=== PATIENT | male | born 1930 | race Caucasian/White ===

== ENCOUNTER 2016-10-17 10:34 | Inpatient (IN) | payer MEDICARE ==
[~2016-10-17] VITALS: Ht 177.8 cm; Wt 82.4 kg
[2016-10-17] MEDS ORDERED: ASPI-496 PO (10:45)
[2016-10-17 11:29] LABS: BLOOD UREA NITROGEN 24 mg/dL (7-18)
[2016-10-17] MEDS ORDERED: hydrALAzine 20 MG/ML, 1ML IV PRN (15:00)
[2016-10-17 15:19] VITALS: BP 131/67
[2016-10-17] MEDS: SODIUM CHLORIDE 0.9% 1,000 ML IV SCH (15:32)
[2016-10-17] MEDS: ATORVASTATIN 20 MG TABLET PO SCH (19:58)
[2016-10-17 20:38] VITALS: BP 124/73
[2016-10-18] MEDS: SODIUM CHLORIDE 0.9% 1,000 ML IV SCH ×2 (00:22→22:15)
[2016-10-18 02:37] VITALS: BP 109/63
[2016-10-18] MEDS: ASPIRIN 325 MG TABLET PO SCH (06:00)
[2016-10-18] MEDS: ENOXAPARIN 40 MG/0.4 ML SQ SCH (13:30)
[2016-10-18] MEDS: ATORVASTATIN 20 MG TABLET PO SCH (21:00)
[2016-10-19] MEDS: ASPIRIN 325 MG TABLET PO SCH (06:10)
[2016-10-19 06:50] VITALS: BP 146/70
[2016-10-19 07:29] VITALS: BP 127/63
[2016-10-19 13:30] VITALS: BP 108/63
[2016-10-19] MEDS: SODIUM CHLORIDE 0.9% 1,000 ML IV SCH (16:01)
[2016-10-19] MEDS: ENOXAPARIN 40 MG/0.4 ML SQ SCH (16:01)
[2016-10-19 20:25] VITALS: BP 129/59
[2016-10-19] MEDS: ATORVASTATIN 20 MG TABLET PO SCH (20:54)
[2016-10-19 22:05] VITALS: BP 142/74
[2016-10-20] MEDS: SODIUM CHLORIDE 0.9% 1,000 ML IV SCH ×3 (01:43→21:02)
[2016-10-20 01:55] VITALS: BP 145/73
[2016-10-20] MEDS: ASPIRIN 325 MG TABLET PO SCH (06:19)
[2016-10-20 12:16] VITALS: BP 166/78
[2016-10-20] MEDS: ENOXAPARIN 40 MG/0.4 ML SQ SCH (12:19)
[2016-10-20] MEDS ORDERED: ASPI325T4 PO (16:03)
[2016-10-20] MEDS ORDERED: ATOR20TA9 PO (16:03)
[2016-10-20 18:35] VITALS: BP_SYST 167; BP_SYST 185; BP_DIAS 77; BP_DIAS 82
[2016-10-20] MEDS: ATORVASTATIN 20 MG TABLET PO SCH (21:01)
[2016-10-21 00:17] VITALS: BP 152/78
[2016-10-21 03:47] VITALS: BP 159/77
[2016-10-21] MEDS: ASPIRIN 325 MG TABLET PO SCH (05:43)
[2016-10-21] MEDS: SODIUM CHLORIDE 0.9% 1,000 ML IV SCH (05:43)
[2016-10-21 08:48] VITALS: BP 168/92
[2016-10-21] MEDS ORDERED: TAMSULOSIN 0.4 MG CAP.ER.24H PO SCH (10:00)
[2016-10-21] MEDS: ENOXAPARIN 40 MG/0.4 ML SQ SCH (11:24)
[2016-10-21] MEDS ORDERED: TAMS-11 PO (12:06)
[2016-10-21 12:56] VITALS: BP 134/81
== END 2016-10-21 14:10 | DRG 65 ==
LOC: ED 11:26 → EDIP 13:31 → 4WST 15:08
PROVIDERS: ADMIT Hospitalist; ATTEND Hospitalist
DX: I63.9 Cerebral infarction, unspecified (principal); G81.91 Hemiplegia, unspecified affecting right dominant side; I50.30 Unspecified diastolic (congestive) heart failure; I35.0 Nonrheumatic aortic (valve) stenosis; N40.1 Benign prostatic hyperplasia with lower urinary tract symptoms; R33.8 Other retention of urine; Z66 Do not resuscitate; R47.81 Slurred speech; R47.1 Dysarthria and anarthria; R26.2 Difficulty in walking, not elsewhere classified; Z60.2 Problems related to living alone; Z88.0 Allergy status to penicillin; Z87.891 Personal history of nicotine dependence; Z79.82 Long term (current) use of aspirin; Z91.81 History of falling
CPT/HCPCS: 36415; 70450; 70496; 70498; 80048; 80061; 85025; 85610; 85730; 93005; 93306; 99285; J1650; 92523-GN; J7030

== ENCOUNTER → 2017-08-12 | Outpatient (CLI) | payer MEDICARE ==
[~2017-08-12] MED LIST: ASPI-496 PO; ASPI325T17 PO; ATOR20TA9 PO; ONDA4VIA4 PO; POLY17PO5 PO; TAMS-11 PO; TRAM50TA2 PO
== END | disposition home or self-care (01) ==
LOC: WOUND 09:58
PROVIDERS: ATTEND Family Medicine
DX: S51.811A Laceration without foreign body of right forearm, initial encounter (principal); E78.2 Mixed hyperlipidemia; Z86.73 Personal history of transient ischemic attack (TIA), and cerebral infarction without residual deficits; W18.39XA Other fall on same level, initial encounter; Y93.89 Activity, other specified; Y92.89 Other specified places as the place of occurrence of the external cause; Y99.8 Other external cause status
CPT/HCPCS: 97597; 97598; G0463; WOU0463

== ENCOUNTER → 2017-08-26 | Outpatient (CLI) | payer MEDICARE | END | disposition home or self-care (01) | LOC: WOUND 10:39 | PROVIDERS: ATTEND Family Medicine | DX: S51.811D Laceration without foreign body of right forearm, subsequent encounter (principal); E78.2 Mixed hyperlipidemia; Z86.73 Personal history of transient ischemic attack (TIA), and cerebral infarction without residual deficits; X58.XXXD Exposure to other specified factors, subsequent encounter | CPT/HCPCS: 97597 ==

== ENCOUNTER → 2017-09-16 | Outpatient (CLI) | payer MEDICARE | END | disposition home or self-care (01) | LOC: WOUND 10:30 | PROVIDERS: ATTEND Family Medicine | DX: S51.811D Laceration without foreign body of right forearm, subsequent encounter (principal); I63.39 Cerebral infarction due to thrombosis of other cerebral artery; E78.2 Mixed hyperlipidemia; Z86.73 Personal history of transient ischemic attack (TIA), and cerebral infarction without residual deficits; X58.XXXD Exposure to other specified factors, subsequent encounter | CPT/HCPCS: 97597 ==

== ENCOUNTER 2017-11-13 22:09 | Emergency (ER) | payer MEDICARE ==
[~2017-11-13] VITALS: Ht 175.3 cm; Wt 70.0 kg
[~2017-11-13 22:09] MED LIST changes: +BUPR300T49 PO; +BUPR75TA6 PO; +OXYB5TAB7 PO
[2017-11-13 22:40] LABS: BASOPHILS # (AUTO) 0.03 x10^3/uL (0-0.1); BASOPHILS % (AUTO) 0 % (0-1); EOSINOPHILS # (AUTO) 0.06 x10^3/uL (0-0.4); EOSINOPHILS % (AUTO) 1 % (1-7); LYMPHOCYTES # (AUTO) 0.93 x10^3/uL (1-3.4); LYMPHOCYTES % (AUTO) 9 % (22-44); MD NO; MEAN CORPUSCULAR HEMOGLOBIN 28.8 pg (27.5-34.5); MEAN CORPUSCULAR HGB CONC 33.4 g/dL (33.2-36.2); MEAN CORPUSCULAR VOLUME 86.1 fL (81-97); MEAN PLATELET VOLUME 8.1 fL (7.4-10.4); MONOCYTES # (AUTO) 0.57 x10^3/uL (0.2-0.8); MONOCYTES % (AUTO) 5 % (2-9); NEUTROPHILS # (AUTO) 9.43 x10^3/uL (1.8-6.8); NEUTROPHILS % (AUTO) 86 % (42-75); PLATELET COUNT 204 x10^3/uL (130-400); RED BLOOD COUNT 4.81 x10^6/uL (4.38-5.82); RED CELL DISTRIBUTION WIDTH 18.1 % (9.4-14.8)
[2017-11-13 22:48] LABS: MICROSCOPIC NOT IND
[2017-11-13 22:49] LABS: ALBUMIN 3.3 g/dL (3.4-5.0); ANION GAP 7 mmol/L (5-15); CALCIUM 8.5 mg/dL (8.5-10.1); CHLORIDE 106 mmol/L (98-107); CREATININE 0.87 mg/dL (0.7-1.3)
[2017-11-13 22:51] LABS: CULTURE INDICATED? NO
[2017-11-13 23:21] VITALS: BP 141/74
== END 2017-11-14 | disposition home or self-care (01) ==
LOC: ED 23:45
DX: R10.9 Unspecified abdominal pain (principal); N40.1 Benign prostatic hyperplasia with lower urinary tract symptoms; R33.8 Other retention of urine; Z90.49 Acquired absence of other specified parts of digestive tract; Z86.73 Personal history of transient ischemic attack (TIA), and cerebral infarction without residual deficits
CPT/HCPCS: 36415; 51702; 80048; 81003; 82040; 85025; 99284

== ENCOUNTER 2017-11-18 13:32 | Inpatient (IN) | payer MEDICARE ==
[~2017-11-18] VITALS: Ht 175.3 cm; Wt 64.8 kg
[2017-11-18] MEDS ORDERED: PHENAZOPYRIDINE 200 MG TABLET ONE (14:18)
[2017-11-18] MEDS ORDERED: PHENAZOPYRIDINE 200 MG TABLET PO ONE (14:30)
[2017-11-18 14:53] LABS: MICROSCOPIC INDICATED
[2017-11-18 14:54] LABS: CULTURE INDICATED? YES
[2017-11-18 15:04] LABS: BASOPHILS # (AUTO) 0.01 x10^3/uL (0-0.1); BASOPHILS % (AUTO) 0 % (0-1); EOSINOPHILS # (AUTO) 0.16 x10^3/uL (0-0.4); EOSINOPHILS % (AUTO) 2 % (1-7); LYMPHOCYTES # (AUTO) 1.13 x10^3/uL (1-3.4); LYMPHOCYTES % (AUTO) 15 % (22-44); MD NO; MEAN CORPUSCULAR HEMOGLOBIN 29.1 pg (27.5-34.5); MEAN CORPUSCULAR HGB CONC 33.4 g/dL (33.2-36.2); MEAN CORPUSCULAR VOLUME 86.9 fL (81-97); MEAN PLATELET VOLUME 8.4 fL (7.4-10.4); MONOCYTES # (AUTO) 0.53 x10^3/uL (0.2-0.8); MONOCYTES % (AUTO) 7 % (2-9); NEUTROPHILS # (AUTO) 5.62 x10^3/uL (1.8-6.8); NEUTROPHILS % (AUTO) 76 % (42-75); PLATELET COUNT 211 x10^3/uL (130-400); RED BLOOD COUNT 5.35 x10^6/uL (4.38-5.82); RED CELL DISTRIBUTION WIDTH 18.2 % (9.4-14.8)
[2017-11-18 15:11] LABS: ALBUMIN 3.4 g/dL (3.4-5.0); ANION GAP 8 mmol/L (5-15); CALCIUM 8.5 mg/dL (8.5-10.1); CHLORIDE 105 mmol/L (98-107); CREATININE 0.87 mg/dL (0.7-1.3)
[2017-11-18] MEDS ORDERED: CEFTRIAXONE PMX 1GM/50ML 50 ML ONE (16:14)
[2017-11-18] MEDS ORDERED: ONDANSETRON 2MG/ML, 2ML IVPush PRN (16:30)
[2017-11-18] MEDS ORDERED: SODIUM CHLORIDE 0.9% 1,000ML IVBOLUS ONE (16:30)
[2017-11-18] MEDS ORDERED: ONDANSETRON ODT 4 MG PO PRN (16:30)
[2017-11-18] MEDS ORDERED: ENALAPRILAT 1.25 MG/ML, 2ML IVPush PRN (16:30)
[2017-11-18] MEDS ORDERED: CEFTRIAXONE PMX 1GM/50ML 50 ML IV ONE (16:30)
[2017-11-18] MEDS ORDERED: BISACODYL 10 MG SUPP PR PRN (16:30)
[2017-11-18] MEDS ORDERED: hydrALAzine 20 MG/ML, 1ML IVPush PRN (16:30)
[2017-11-18 17:20] LABS: BASOPHILS # (AUTO) 0.02 x10^3/uL (0-0.1); BASOPHILS % (AUTO) 0 % (0-1); EOSINOPHILS # (AUTO) 0.13 x10^3/uL (0-0.4); EOSINOPHILS % (AUTO) 2 % (1-7); LYMPHOCYTES % (AUTO) 16 % (22-44); MD NO; MEAN CORPUSCULAR HEMOGLOBIN 28.8 pg (27.5-34.5); MEAN CORPUSCULAR HGB CONC 33.1 g/dL (33.2-36.2); MEAN PLATELET VOLUME 8.2 fL (7.4-10.4); MONOCYTES # (AUTO) 0.59 x10^3/uL (0.2-0.8); MONOCYTES % (AUTO) 9 % (2-9); NEUTROPHILS % (AUTO) 73 % (42-75); PLATELET COUNT 205 x10^3/uL (130-400); RED BLOOD COUNT 4.86 x10^6/uL (4.38-5.82); RED CELL DISTRIBUTION WIDTH 18.3 % (9.4-14.8)
[2017-11-18] MEDS ORDERED: PHENAZOPYRIDINE 100 MG TABLET PO PRN (17:30)
[2017-11-18 18:20] VITALS: BP 162/82
[2017-11-18] MEDS: ENOXAPARIN 40 MG/0.4 ML SQ SCH (18:34)
[2017-11-18] MEDS: SODIUM CHLORIDE 0.9% 1,000 ML IV SCH (18:34)
[2017-11-18 19:18] VITALS: BP 162/89
[2017-11-18] MEDS ORDERED: CEFTRIAXONE PMX 1GM/50ML 50 ML IV SCH (20:00)
[2017-11-18] MEDS ORDERED: ATORVASTATIN 20 MG TABLET PO SCH (21:00)
[2017-11-18] MEDS: BUPROPION SR 150 MG TABLET PO SCH (21:18)
[2017-11-18] MEDS: TAMSULOSIN 0.4 MG CAP.ER.24H PO SCH (21:18)
[2017-11-18] MEDS: OXYBUTYNIN CHLORIDE 5 MG TABLET PO SCH (21:18)
[2017-11-19 00:20] VITALS: BP 131/71
[2017-11-19] MEDS: SODIUM CHLORIDE 0.9% 1,000 ML IV SCH ×2 (02:42→11:08)
[2017-11-19] MEDS ORDERED: ASPIRIN 325 MG TABLET PO SCH (06:00)
[2017-11-19 06:11] LABS: ALANINE AMINOTRANSFERASE 12 U/L (12-78); ALBUMIN 2.7 g/dL (3.4-5.0); ANION GAP 7 mmol/L (5-15); BASOPHILS # (AUTO) 0.03 x10^3/uL (0-0.1); BASOPHILS % (AUTO) 1 % (0-1); CALCIUM 7.7 mg/dL (8.5-10.1); CHLORIDE 111 mmol/L (98-107); CREATININE 0.74 mg/dL (0.7-1.3); EOSINOPHILS # (AUTO) 0.17 x10^3/uL (0-0.4); EOSINOPHILS % (AUTO) 3 % (1-7); LYMPHOCYTES # (AUTO) 1.29 x10^3/uL (1-3.4); LYMPHOCYTES % (AUTO) 21 % (22-44); MD NO; MEAN CORPUSCULAR HEMOGLOBIN 28.8 pg (27.5-34.5); MEAN CORPUSCULAR HGB CONC 33.2 g/dL (33.2-36.2); MEAN CORPUSCULAR VOLUME 86.7 fL (81-97); MEAN PLATELET VOLUME 8.5 fL (7.4-10.4); MONOCYTES % (AUTO) 10 % (2-9); NEUTROPHILS # (AUTO) 4.13 x10^3/uL (1.8-6.8); NEUTROPHILS % (AUTO) 67 % (42-75); PLATELET COUNT 203 x10^3/uL (130-400); RED BLOOD COUNT 4.48 x10^6/uL (4.38-5.82); RED CELL DISTRIBUTION WIDTH 18.6 % (9.4-14.8)
[2017-11-19 06:13] LABS: ALKALINE PHOSPHATASE 77 U/L (45-117); BILIRUBIN,TOTAL 0.7 mg/dL (0.2-1.0); TOTAL PROTEIN 5.5 g/dL (6.4-8.2)
[2017-11-19 07:06] VITALS: BP 129/76
[2017-11-19] MEDS ORDERED: SENNA/DOCUSATE TABLET PO SCH (09:00)
[2017-11-19] MEDS: TAMSULOSIN 0.4 MG CAP.ER.24H PO SCH (09:15)
[2017-11-19] MEDS: BUPROPION SR 150 MG TABLET PO SCH (09:15)
[2017-11-19] MEDS: OXYBUTYNIN CHLORIDE 5 MG TABLET PO SCH (09:15)
[2017-11-19] MEDS ORDERED: SULF1TAB23 PO (14:30)
[2017-11-19 15:00] VITALS: BP 118/72
[2017-11-19] MEDS: ENOXAPARIN 40 MG/0.4 ML SQ SCH (16:26)
== END 2017-11-19 17:19 | disposition home health service (06) | DRG 698 ==
LOC: ED 16:16 → EDIP 16:17 → ED 16:26 → 3NE 17:20
PROVIDERS: ADMIT Family Medicine; ATTEND Family Medicine
PROC: 0T9B70Z Drainage of Bladder with Drainage Device, Via Natural or Artificial Opening (ICD-10-PCS; principal; 2017-11-18)
DX: T83.511A Infection and inflammatory reaction due to indwelling urethral catheter, initial encounter (principal); E43 Unspecified severe protein-calorie malnutrition; J44.9 Chronic obstructive pulmonary disease, unspecified; N40.1 Benign prostatic hyperplasia with lower urinary tract symptoms; R33.8 Other retention of urine; Z66 Do not resuscitate; Z86.73 Personal history of transient ischemic attack (TIA), and cerebral infarction without residual deficits; Y84.6 Urinary catheterization as the cause of abnormal reaction of the patient, or of later complication, without mention of misadventure at the time of the procedure; Y92.9 Unspecified place or not applicable; I25.2 Old myocardial infarction; F32.9 Major depressive disorder, single episode, unspecified; E78.00 Pure hypercholesterolemia, unspecified; R31.9 Hematuria, unspecified
CPT/HCPCS: 36415; 80048; 80053; 81001; 82040; 85025; 87086; 87186; 93005; 96365; J0696; J1650; J7030

== ENCOUNTER 2017-12-14 12:43 | Emergency (ER) | payer MEDICARE ==
[~2017-12-14] VITALS: Ht 175.3 cm; Wt 78.0 kg
[~2017-12-14 12:43] MED LIST changes: +SULF1TAB23 PO
[2017-12-14 13:05] LABS: BASOPHILS # (AUTO) 0.04 x10^3/uL (0-0.1); BASOPHILS % (AUTO) 0 % (0-1); EOSINOPHILS # (AUTO) 0.15 x10^3/uL (0-0.4); EOSINOPHILS % (AUTO) 2 % (1-7); LYMPHOCYTES % (AUTO) 18 % (22-44); MD NO; MEAN CORPUSCULAR HEMOGLOBIN 29.7 pg (27.5-34.5); MEAN CORPUSCULAR HGB CONC 33.8 g/dL (33.2-36.2); MEAN CORPUSCULAR VOLUME 87.9 fL (81-97); MEAN PLATELET VOLUME 8.4 fL (7.4-10.4); MONOCYTES % (AUTO) 7 % (2-9); NEUTROPHILS # (AUTO) 6.53 x10^3/uL (1.8-6.8); NEUTROPHILS % (AUTO) 73 % (42-75); PLATELET COUNT 190 x10^3/uL (130-400); RED BLOOD COUNT 4.52 x10^6/uL (4.38-5.82); RED CELL DISTRIBUTION WIDTH 18.5 % (9.4-14.8)
[2017-12-14 13:13] LABS: ALBUMIN 3.1 g/dL (3.4-5.0); ANION GAP 6 mmol/L (5-15); CALCIUM 8.3 mg/dL (8.5-10.1); CHLORIDE 107 mmol/L (98-107); CREATININE 0.86 mg/dL (0.7-1.3)
[2017-12-14 13:19] LABS: INTERNATIONAL NORMALIZED RATIO 1.04 (0.93-1.1); PROTHROMBIN TIME 10.7 Seconds (9.6-11.5)
[2017-12-14 13:50] LABS: CULTURE INDICATED? YES; MICROSCOPIC INDICATED
[2017-12-14 15:15] VITALS: BP 149/68
== END 2017-12-14 16:01 | disposition home or self-care (01) ==
LOC: ED 15:50
DX: T83.511A Infection and inflammatory reaction due to indwelling urethral catheter, initial encounter (principal); N30.01 Acute cystitis with hematuria; N40.0 Benign prostatic hyperplasia without lower urinary tract symptoms; Z86.73 Personal history of transient ischemic attack (TIA), and cerebral infarction without residual deficits; Z90.89 Acquired absence of other organs; Z88.0 Allergy status to penicillin; Y83.8 Other surgical procedures as the cause of abnormal reaction of the patient, or of later complication, without mention of misadventure at the time of the procedure; Y92.89 Other specified places as the place of occurrence of the external cause
CPT/HCPCS: 36415; 80048; 81001; 82040; 85025; 85610; 87077; 87086; 87186; 99284

== ENCOUNTER 2018-01-24 13:58 | Observation (INO) | payer MEDICARE ==
[~2018-01-24] VITALS: Ht 175.3 cm; Wt 65.5 kg
[~2018-01-24 13:58] MED LIST changes: +FINA5TAB4 PO; -ONDA4VIA4 PO; +ONDA4VIA8 PO
[2018-01-24 14:51] LABS: BASOPHILS # (AUTO) 0.03 x10^3/uL (0-0.1); BASOPHILS % (AUTO) 0 % (0-1); EOSINOPHILS # (AUTO) 0.21 x10^3/uL (0-0.4); EOSINOPHILS % (AUTO) 3 % (1-7); LYMPHOCYTES # (AUTO) 1.21 x10^3/uL (1-3.4); LYMPHOCYTES % (AUTO) 19 % (22-44); MD NO; MEAN CORPUSCULAR HEMOGLOBIN 30.4 pg (27.5-34.5); MEAN CORPUSCULAR HGB CONC 34.1 g/dL (33.2-36.2); MEAN CORPUSCULAR VOLUME 88.9 fL (81-97); MEAN PLATELET VOLUME 8.6 fL (7.4-10.4); MONOCYTES # (AUTO) 0.42 x10^3/uL (0.2-0.8); MONOCYTES % (AUTO) 7 % (2-9); NEUTROPHILS # (AUTO) 4.48 x10^3/uL (1.8-6.8); NEUTROPHILS % (AUTO) 71 % (42-75); PLATELET COUNT 222 x10^3/uL (130-400); RED CELL DISTRIBUTION WIDTH 17.3 % (9.4-14.8)
[2018-01-24 14:57] LABS: ANION GAP 6 mmol/L (5-15); CHLORIDE 110 mmol/L (98-107); CREATININE 0.78 mg/dL (0.7-1.3)
[2018-01-24] MEDS ORDERED: TRAZODONE 50MG TABLET PO PRN (16:30)
[2018-01-24] MEDS ORDERED: POLYETHYLENE GLYCOL 17 GM PACKET PO PRN (16:30)
[2018-01-24] MEDS ORDERED: POTASSIUM CHLORIDE 20 MEQ in LACTATED RINGERS 1,000 ML IV SCH (16:30)
[2018-01-24] MEDS ORDERED: DOCUSATE 100 MG CAPSULE PO PRN (16:30)
[2018-01-24] MEDS ORDERED: ENOXAPARIN 40 MG/0.4 ML SQ SCH (16:30)
[2018-01-24] MEDS ORDERED: PROPOFOL 10 MG/ML, 20ML ONE (16:36)
[2018-01-24] MEDS ORDERED: FENTANYL PF 250 MCG/5ML ONE (16:36)
[2018-01-24] MEDS ORDERED: SUCCINYLCHOLINE 20 MG/ML, 10ML ONE (16:37)
[2018-01-24] MEDS ORDERED: ROCURONIUM 10MG/ML,5ML ONE (16:37)
[2018-01-24] MEDS ORDERED: CEFAZOLIN 1,000 MG ONE ×2 (16:38)
[2018-01-24] MEDS ORDERED: WATER-INJECTION,STERILE 10 ML IV ONE (16:38)
[2018-01-24] MEDS ORDERED: BACITRACIN 50,000 UNIT ONE (16:57)
[2018-01-24] MEDS ORDERED: BUPIVACAINE/PF-EPI 0.5% 1:200K ONE (16:57)
[2018-01-24] MEDS ORDERED: GLYCOPYRROLATE 0.4 MG/2 ML, 2ML ONE (17:27)
[2018-01-24] MEDS ORDERED: NEOSTIGMINE 1 MG/ML, 10ML ONE (17:27)
[2018-01-24] MEDS ORDERED: MEPERIDINE/PF 25MG/0.5ML IVPush PRN (17:30)
[2018-01-24] MEDS ORDERED: PROMETHAZINE 25 MG/ML, 1ML IV PRN (17:30)
[2018-01-24] MEDS ORDERED: PROMETHAZINE 25 MG SUPP PR PRN (17:30)
[2018-01-24] MEDS ORDERED: OXYcodone 5 MG/5 ML ORAL.SOL UDC PO PRN (17:30)
[2018-01-24] MEDS ORDERED: ONDANSETRON ODT 8 MG PO PRN (17:30)
[2018-01-24] MEDS ORDERED: hydrALAzine 20 MG/ML, 1ML IV PRN (17:30)
[2018-01-24] MEDS ORDERED: LABETALOL 5MG/ML, 20ML IV PRN (17:30)
[2018-01-24] MEDS ORDERED: FENTANYL PF 100 MCG/2ML IV PRN (17:30)
[2018-01-24] MEDS ORDERED: MORPHINE SULFATE 4 MG/ML, 1ML IVPush PRN (17:30)
[2018-01-24] MEDS ORDERED: ONDANSETRON 2MG/ML, 2ML IV PRN ×2 (17:30→20:30)
[2018-01-24] MEDS ORDERED: PROMETHAZINE 12.5 MG SUPP PR PRN (17:30)
[2018-01-24] MEDS ORDERED: OXYcodone 5 MG/5 ML ORAL.SOL UDC ONE (18:22)
[2018-01-24] MEDS ORDERED: HYDROmorphone 2 MG/ML, 1ML ONE (18:41)
[2018-01-24] MEDS: HYDROmorphone 1 MG/ML, 1ML IV PRN ×2 (18:44→18:50)
[2018-01-24 19:38] VITALS: BP 142/75
[2018-01-24] MEDS ORDERED: morphine SULFATE 10 MG/ML, 1ML IV PRN (20:30)
[2018-01-24] MEDS ORDERED: POTASSIUM CHLORIDE 20 MEQ in D5%-0.45% NACL 1,000 ML IV SCH (20:30)
[2018-01-24] MEDS: TAMSULOSIN 0.4 MG CAP.ER.24H PO SCH (20:45)
[2018-01-24] MEDS: OXYBUTYNIN CHLORIDE 5 MG TABLET PO SCH (20:45)
[2018-01-24] MEDS: ATORVASTATIN 20 MG TABLET PO SCH (20:45)
[2018-01-24] MEDS: CEFOTETAN PMX 1GM/50ML 50 ML IVPB SCH (21:34)
[2018-01-25] MEDS: HYDROcodone/APAP 5/325 TABLET PO PRN ×4 (00:08→20:03)
[2018-01-25 00:16] VITALS: BP 147/93
[2018-01-25] MEDS ORDERED: HYDROmorphone 2 MG/ML, 1ML IV PRN (02:30)
[2018-01-25 04:08] VITALS: BP 130/75
[2018-01-25] MEDS: D5%-0.45NACL+KCL 20MEQ 1,000 ML IV SCH ×3 (05:02→18:30)
[2018-01-25] MEDS: ENOXAPARIN 40 MG/0.4 ML SQ SCH (05:09)
[2018-01-25 06:18] LABS: BASOPHILS # (AUTO) 0.02 x10^3/uL (0-0.1); BASOPHILS % (AUTO) 0 % (0-1); EOSINOPHILS # (AUTO) 0.09 x10^3/uL (0-0.4); EOSINOPHILS % (AUTO) 1 % (1-7); LYMPHOCYTES # (AUTO) 0.74 x10^3/uL (1-3.4); LYMPHOCYTES % (AUTO) 9 % (22-44); MD NO; MEAN CORPUSCULAR HGB CONC 33.7 g/dL (33.2-36.2); MEAN CORPUSCULAR VOLUME 89.1 fL (81-97); MEAN PLATELET VOLUME 8.4 fL (7.4-10.4); MONOCYTES # (AUTO) 0.45 x10^3/uL (0.2-0.8); MONOCYTES % (AUTO) 6 % (2-9); NEUTROPHILS # (AUTO) 6.96 x10^3/uL (1.8-6.8); NEUTROPHILS % (AUTO) 84 % (42-75); PLATELET COUNT 212 x10^3/uL (130-400); RED BLOOD COUNT 3.86 x10^6/uL (4.38-5.82); RED CELL DISTRIBUTION WIDTH 17.5 % (9.4-14.8)
[2018-01-25 06:24] LABS: ANION GAP 6 mmol/L (5-15); CALCIUM 7.8 mg/dL (8.5-10.1); CHLORIDE 104 mmol/L (98-107)
[2018-01-25 06:29] LABS: ALANINE AMINOTRANSFERASE 12 U/L (12-78); ALBUMIN 2.9 g/dL (3.4-5.0); ALKALINE PHOSPHATASE 68 U/L (45-117); BILIRUBIN,TOTAL 0.5 mg/dL (0.2-1.0); CREATININE 0.82 mg/dL (0.7-1.3); TOTAL PROTEIN 5.5 g/dL (6.4-8.2)
[2018-01-25 06:46] VITALS: BP 92/54
[2018-01-25] MEDS: FINASTERIDE 5 MG TABLET PO SCH (09:21)
[2018-01-25] MEDS: ASPIRIN 325 MG TABLET EC PO SCH (09:21)
[2018-01-25] MEDS: OXYBUTYNIN CHLORIDE 5 MG TABLET PO SCH ×2 (09:21→20:51)
[2018-01-25] MEDS: TAMSULOSIN 0.4 MG CAP.ER.24H PO SCH ×2 (09:21→20:51)
[2018-01-25] MEDS: CEFOTETAN PMX 1GM/50ML 50 ML IVPB SCH (11:40)
[2018-01-25] MEDS ORDERED: HYDR-3240 PO (12:26)
[2018-01-25 13:08] VITALS: BP 104/45
[2018-01-25 19:39] VITALS: BP 151/84
[2018-01-25] MEDS: ATORVASTATIN 20 MG TABLET PO SCH (20:52)
[2018-01-26] MEDS: HYDROcodone/APAP 5/325 TABLET PO PRN ×3 (01:17→10:01)
[2018-01-26 02:24] VITALS: BP 119/72
[2018-01-26] MEDS: D5%-0.45NACL+KCL 20MEQ 1,000 ML IV SCH (02:30)
[2018-01-26] MEDS: ENOXAPARIN 40 MG/0.4 ML SQ SCH (05:47)
[2018-01-26 07:45] VITALS: BP 109/67
[2018-01-26] MEDS: ASPIRIN 325 MG TABLET EC PO SCH (09:05)
[2018-01-26] MEDS: TAMSULOSIN 0.4 MG CAP.ER.24H PO SCH (09:05)
[2018-01-26] MEDS: OXYBUTYNIN CHLORIDE 5 MG TABLET PO SCH (09:05)
[2018-01-26] MEDS: FINASTERIDE 5 MG TABLET PO SCH (09:05)
== END 2018-01-26 10:33 | disposition home or self-care (01) ==
LOC: ED 16:14 → INTOOBSV 16:15 → EDIP 16:15 → OBSVTOIN 16:15 → ED 16:30 → 4NOR 19:35
PROVIDERS: ADMIT Family Medicine; ATTEND Family Medicine
DX: K40.30 Unilateral inguinal hernia, with obstruction, without gangrene, not specified as recurrent (principal); E78.00 Pure hypercholesterolemia, unspecified; D63.8 Anemia in other chronic diseases classified elsewhere; I10 Essential (primary) hypertension; J44.9 Chronic obstructive pulmonary disease, unspecified; K80.20 Calculus of gallbladder without cholecystitis without obstruction; N40.1 Benign prostatic hyperplasia with lower urinary tract symptoms; Z82.5 Family history of asthma and other chronic lower respiratory diseases; Z87.891 Personal history of nicotine dependence; Z86.73 Personal history of transient ischemic attack (TIA), and cerebral infarction without residual deficits
CPT/HCPCS: 36415; 49507; 80048; 80053; 83605; 85025; 96365; 96366; 96372; 96375; 97116; 97162; 97166; 97530; 99285; C1781; G0378; G8978; G8979; G8980; J0330; J0690; J1170; J1650; J2704; J2710; J3010; J3480; S0074

== ENCOUNTER 2018-07-20 11:35 | Observation (INO) | payer MEDICARE ==
[~2018-07-20] VITALS: Ht 177.8 cm; Wt 67.3 kg
[~2018-07-20 11:35] MED LIST changes: +ATOR20TA37 PO; -ATOR20TA9 PO; +HYDR-3240 PO
[2018-07-20] MEDS ORDERED: SODIUM CHLORIDE FLUSH 10ML SYR IVF ONE (12:00)
[2018-07-20] MEDS ORDERED: SODIUM CHLORIDE 0.9% 1,000ML IVBOLUS ONE (12:00)
[2018-07-20 12:36] LABS: BASOPHILS # (AUTO) 0.03 x10^3/uL (0-0.1); BASOPHILS % (AUTO) 0 % (0-1); EOSINOPHILS # (AUTO) 0.17 x10^3/uL (0-0.4); EOSINOPHILS % (AUTO) 2 % (1-7); LYMPHOCYTES # (AUTO) 0.81 x10^3/uL (1-3.4); LYMPHOCYTES % (AUTO) 10 % (22-44); MD NO; MEAN CORPUSCULAR HEMOGLOBIN 25.6 pg (27.5-34.5); MEAN CORPUSCULAR VOLUME 80.2 fL (81-97); MONOCYTES % (AUTO) 6 % (2-9); NEUTROPHILS # (AUTO) 6.67 x10^3/uL (1.8-6.8); NEUTROPHILS % (AUTO) 81 % (42-75); PLATELET COUNT 230 x10^3/uL (130-400); RED CELL DISTRIBUTION WIDTH 15.9 % (9.4-14.8)
[2018-07-20 12:40] LABS: ALANINE AMINOTRANSFERASE 12 U/L (12-78); ALBUMIN 3.2 g/dL (3.4-5.0); ANION GAP 6 mmol/L (5-15); CALCIUM 8.2 mg/dL (8.5-10.1); CHLORIDE 111 mmol/L (98-107)
[2018-07-20 12:45] LABS: ALKALINE PHOSPHATASE 100 U/L (45-117); BILIRUBIN,TOTAL 0.5 mg/dL (0.2-1.0); CREATININE 1.05 mg/dL (0.7-1.3); TOTAL PROTEIN 6.6 g/dL (6.4-8.2); TROPONIN I < 0.015 ng/mL (0.000-0.045)
[2018-07-20] MEDS ORDERED: ASPI-13 PO (13:45)
[2018-07-20] MEDS ORDERED: ASPIRIN 81 MG TABLET CHEW PO ONE (14:00)
[2018-07-20] MEDS ORDERED: ASPIRIN 81 MG TABLET CHEW ONE (14:29)
--- NOTE | 2018-07-20 14:35 | NUR ---
[facility] TELEPHONE HAND-OFF REPORT GIVEN TO VIET GORDON. PATIENT READY TO GO TO HOSPITAL ROOM.
[2018-07-20 15:11] VITALS: BP 116/67
[2018-07-20] MEDS ORDERED: POLYETHYLENE GLYCOL 17 GM PACKET PO PRN (16:30)
[2018-07-20] MEDS ORDERED: ONDANSETRON 2MG/ML, 2ML IVPush PRN (16:30)
[2018-07-20] MEDS: HEPARIN 5,000 UNITS/ML, 1ML SQ SCH (18:40)
[2018-07-20] MEDS: ATORVASTATIN 20 MG TABLET PO SCH (20:43)
[2018-07-20 20:44] LABS: TROPONIN I < 0.015 ng/mL (0.000-0.045)
[2018-07-20] MEDS: OXYBUTYNIN CHLORIDE 5 MG TABLET PO SCH (20:44)
[2018-07-20] MEDS: TAMSULOSIN 0.4 MG CAP.ER.24H PO SCH (20:44)
[2018-07-20 20:45] VITALS: BP 131/76
[2018-07-21 01:42] LABS: MICROSCOPIC NOT IND
[2018-07-21 01:54] LABS: CULTURE INDICATED? NO
[2018-07-21 02:07] VITALS: BP 149/68
[2018-07-21] MEDS: HEPARIN 5,000 UNITS/ML, 1ML SQ SCH ×3 (03:39→20:02)
[2018-07-21 05:03] LABS: LDL/HDL RATIO 0.8 (0.5-3.0)
[2018-07-21 08:13] VITALS: BP 120/51
[2018-07-21] MEDS ORDERED: ASPIRIN 325 MG PO SCH (09:00)
[2018-07-21] MEDS: TAMSULOSIN 0.4 MG CAP.ER.24H PO SCH ×2 (09:18→20:02)
[2018-07-21] MEDS: FINASTERIDE 5 MG TABLET PO SCH (09:19)
[2018-07-21] MEDS: OXYBUTYNIN CHLORIDE 5 MG TABLET PO SCH ×2 (09:20→20:02)
[2018-07-21] MEDS: ASPIRIN 81 MG TABLET CHEW PO/NG SCH (09:23)
[2018-07-21 12:25] VITALS: BP 119/76
[2018-07-21] MEDS ORDERED: ASPI-515 PO/NG (12:42)
[2018-07-21 16:34] VITALS: BP 148/72
[2018-07-21 19:15] VITALS: BP 128/70
[2018-07-21] MEDS: ATORVASTATIN 20 MG TABLET PO SCH (20:02)
[2018-07-22] MEDS: HEPARIN 5,000 UNITS/ML, 1ML SQ SCH ×2 (03:56→11:00)
[2018-07-22 04:00] VITALS: BP 135/69
[2018-07-22 08:00] VITALS: BP 142/73
[2018-07-22] MEDS: OXYBUTYNIN CHLORIDE 5 MG TABLET PO SCH (09:25)
[2018-07-22] MEDS: FINASTERIDE 5 MG TABLET PO SCH (09:25)
[2018-07-22] MEDS: ASPIRIN 81 MG TABLET CHEW PO/NG SCH (09:25)
[2018-07-22] MEDS: TAMSULOSIN 0.4 MG CAP.ER.24H PO SCH (09:25)
== END 2018-07-22 13:25 | disposition home or self-care (01) ==
LOC: ED 13:25 → INTOOBSV 13:59 → EDIP 13:59 → 4WST 15:01
PROVIDERS: ADMIT Internal Medicine; ATTEND Internal Medicine
DX: R53.1 Weakness (principal); E78.5 Hyperlipidemia, unspecified; D50.9 Iron deficiency anemia, unspecified; E78.00 Pure hypercholesterolemia, unspecified; G46.0 Middle cerebral artery syndrome; I10 Essential (primary) hypertension; I35.0 Nonrheumatic aortic (valve) stenosis; I48.2 Chronic atrial fibrillation; J44.9 Chronic obstructive pulmonary disease, unspecified; I65.23 Occlusion and stenosis of bilateral carotid arteries; K44.9 Diaphragmatic hernia without obstruction or gangrene; N40.0 Benign prostatic hyperplasia without lower urinary tract symptoms; Z86.73 Personal history of transient ischemic attack (TIA), and cerebral infarction without residual deficits
CPT/HCPCS: 36415; 70450; 71045; 80053; 80061; 81003; 83540; 83550; 84484; 85025; 92526; 92610; 93005; 93306; 96372; 99284; G0378; J1644; J7030; 96360